=== PATIENT | female | born 1995 | race Two or more races ===

== ENCOUNTER 2025-05-21 21:14 | Emergency (ER) | payer OTHER ==
[~2025-05-21] VITALS: Ht 165.1 cm; Wt 74.8 kg
[2025-05-21] MEDS: IV NS 0.9% 1,000 ML BAG IV ONE ×2 (21:35→23:01)
[2025-05-21 21:44] LABS: PLATELET COUNT (AUTO) 406 K/uL (150-450); RED BLOOD CELL COUNT(AUTO) 5.10 MIL/uL (4.0-5.2); RED CELL DISTRIBUTION WIDTH 13.8 % (11.5-15.0); WHITE BLOOD COUNT (AUTO) 8.5 K/uL (4.3-11.0)
[2025-05-21 21:45] LABS: APPEARANCE,URINE CLEAR (CLEAR); BLOOD, URINE 3+ Ery/uL (NEGATIVE); LEUKOCYTE ESTERASE ,URINE NEGATIVE (NEGATIVE); NITRITE, URINE NEGATIVE (NEGATIVE); UGLUCOSE NEGATIVE (NEGATIVE)
[2025-05-21 21:47] LABS: PREGNANCY TEST URINE QUAL NEGATIVE (NEGATIVE)
[2025-05-21 21:49] LABS: ADD URINE CULTURE YES; SQUAMOUS EPITHELIAL CELL,UR Many /HPF (None Seen)
[2025-05-21] MEDS: ONDANSETRON HCL/PF - ER 4 MG/2 ML VIAL IV ONE (21:52)
[2025-05-21 21:57] LABS: CALCIUM, SERUM 8.9 mg/dL (8.5-10.1); CREATININE 0.8 mg/dL (0.6-1.3); SODIUM SERUM 143.0 mmol/L (136-145); UREA NITROGEN, BLOOD 17.0 mg/dL (7-18)
[2025-05-21 22:02] LABS: ASPARTATE AMINOTRANSFERASE 13.0 U/L (15-37); TOTAL PROTEIN, SERUM 7.7 g/dL (6.4-8.2)
[2025-05-21] MEDS ORDERED: CEFTRIAXONE 1GM BAG (ER ONLY) 50 ML IV ONE (22:15)
[2025-05-21] MEDS ORDERED: TAMSULOSIN 0.4 MG CAP.SR.24H ONE (22:18)
[2025-05-21] MEDS: CEFTRIAXONE 1 G in IV D5W 50 ML IV ONE (22:25)
[2025-05-21] MEDS: TAMSULOSIN 0.4 MG CAP.SR.24H PO ONE (22:25)
[2025-05-21] MEDS: KETOROLAC TROMETHAMINE 15 MG/ML VIAL IV ONE ×2 (22:25→22:26)
[2025-05-21] MEDS ORDERED: MORPHINE SULFATE INJ 4 MG/ML DISP.SYRIN ONE (23:03)
[2025-05-21] MEDS: MORPHINE SULFATE INJ 2 MG/ML DISP.SYRIN IV ONE (23:06)
[2025-05-21] MEDS ORDERED: CEPH-570 PO (23:26)
[2025-05-21] MEDS ORDERED: IBUP-2314 PO (23:26)
[2025-05-21] MEDS ORDERED: ACET-3102 PO (23:26)
[2025-05-21] MEDS ORDERED: TAMS-12 PO (23:26)
[2025-05-22 00:38] VITALS: BP 121/78; TEMP 98.5; O2SAT 99
== END 2025-05-22 00:39 | disposition home or self-care (01) ==
LOC: ER 21:18
DX: R31.9 Hematuria, unspecified (principal); N20.0 Calculus of kidney; E11.9 Type 2 diabetes mellitus without complications
CPT/HCPCS: 99285; 74176; 96365; 96361; 96375; 84145; 85025; 80048; 87086; 83690; 80076; 83735; 84703; 81001; 36415; 86140; J1885 ×2; J2270; J2405; J7030; J0696